=== PATIENT | female | born 1980 | race Caucasian/White ===

== ENCOUNTER 2017-07-02 05:29 | Day surgery (SDC) | payer BC ==
[2017-06-30 16:44] VITALS: BMI 32.2
[2017-07-01 12:14] LABS: BASO % 0.6 % (0-2.0); EOS % 0.9 % (0-4.5); HEMATOCRIT 40.4 % (32.4-45.2); HEMOGLOBIN 13.3 GM/dL (10.7-15.3); LYMPH % 16.6 % (8-40); MCH 29.3 pg (25.7-33.7); MEAN CELL VOLUME 88.9 fl (80-96); MEAN PLT VOLUME 9.6 fl (7.5-11.1); MONO % 8.3 % (3.8-10.2); NEUT % 73.6 % (42.8-82.8); PLATELET COUNT 185 K/MM3 (134-434); RBC 4.55 M/mm3 (3.60-5.2); RDW 13.6 % (11.6-15.6); WHITE BLOOD COUNT 9.5 K/mm3 (4.0-10.0)
[2017-07-02] MEDS ORDERED: LIDOCAINE HCL/PF 2% SDV 5ML VIAL ONE (07:58)
[2017-07-02] MEDS ORDERED: MIDAZOLAM HCL 2 MG/2 ML SINGLE DOSE VIAL ONE (07:58)
[2017-07-02] MEDS ORDERED: PROPOFOL 20 ML ONE (07:58)
[2017-07-02] MEDS ORDERED: DESFLURANE GAS 240 ML BOTTLE IH ONE (08:08)
[2017-07-02] MEDS ORDERED: ceFAZolin SODIUM 1 GM VIAL IVPB ONE (08:30)
[2017-07-02] MEDS ORDERED: ceFAZolin SODIUM 1 GM VIAL ONE (08:30)
[2017-07-02] MEDS ORDERED: KETOROLAC TROMETHAMINE 30 MG/1 ML VIAL ONE (08:47)
[2017-07-02] MEDS ORDERED: oxyCODONE HCL 5 MG TABLET PO PRN (09:06)
[2017-07-02] MEDS ORDERED: IBUPROFEN 400 MG TABLET (FP) PO PRN (09:06)
[2017-07-02] MEDS ORDERED: ACETAMINOPHEN 325 MG TABLET (FP) PO PRN (09:06)
[2017-07-02] MEDS ORDERED: ONDANSETRON 4 MG/2 ML VIAL IVPUSH PRN (09:07)
--- NOTE | 2017-07-02 09:14 | HP ---
Admitting History and Physical - Admission History of Present Illness: 36 yo @ 11 wks found to have missed in the office on routine testing diagnosed on ultrasound Discussed treatment options: observation, medical intervention and surgical intervention Desires surgical treatment Limitations to Obtaining History: No Limitations - Past Medical History Cardiovascular: No: HTN Gastrointestinal: No: Ascites ...LMP: 04/06/17 ...: Yes ...: 3 ...Para: 1 - Past Surgical History Additional Past Surgical History: LEEP eTOP x 1, s/p D&C Breast implants Liposuction and abdominoplasty - Smoking History Smoking history: Never smoked - Alcohol/Substance Use Hx Alcohol Use: No History of Substance Use: reports: None - Social History History of Recent Travel: No Home Medications - Allergies Allergies/Adverse Reactions: Allergies Allergy/AdvReac Type Severity Reaction Status Date / Time shellfish derived Allergy Intermediate Verified 07/02/17 06:57 No Known Drug Allergies Allergy Verified 07/02/17 06:57 - Home Medications Home Medications: Ambulatory Orders Herbal Life 2 tab PO DAILY 06/30/17 Doxycycline Monohydrate [Monodox] 100 mg PO BID 3 Days #6 capsule 07/02/17 Methylergonovine Maleate [Methergine -] 0.2 mg PO TID #6 tablet 07/02/17 Family Disease History - Family Disease History Family History: Denies Review of Systems - Review of Systems Constitutional: reports: No Symptoms HENT: reports: No Symptoms Neck: reports: No Symptoms Cardiovascular: reports: No Symptoms Gastrointestinal: reports: No Symptoms Genitourinary: reports: No Symptoms Breasts: reports: No Symptoms Reported Musculoskeletal: reports: No Symptoms Integumentary: reports: No Symptoms Hematology/Lymphatic: reports: No Symptoms Psychiatric: reports: No Symptoms Physical Examination Vital Signs: Vital Signs Temperature 98.9 F 07/02/17 06:44 Pulse Rate 64 07/02/17 06:44 Respiratory Rate 16 07/02/17 06:44 Blood Pressure 108/69 07/02/17 06:44 O2 Sat by Pulse Oximetry (%) 99 07/02/17 06:45 Constitutional: Yes: Well Nourished, No Distress, Calm Cardiovascular: Yes: Regular Rate and Rhythm Respiratory: Yes: Regular, CTA Bilaterally Gastrointestinal: Yes: Normal Bowel Sounds, Soft Edema: No Neurological: Yes: Alert, Oriented ...Motor Strength: WNL Labs: CBC, BMP 07/01/17 12:01 Assessment/Plan 36 yo with missed , 11 wks 1. Reviewed preop blood work 2. Consents reviewed and signed Reviewed risks including but not limited to infection, bleeding requiring transfusion, uterine perforation, uterine adhesion formation Patient expressed understanding, written consent obtained 3. Discussed postop medication including methergine and doxycycline 4. Will proceed to OR
[2017-07-02] MEDS ORDERED: LACTATED RINGERS SOLUTION 1,000 ML IV SCH (09:15)
--- NOTE | 2017-07-02 09:16 | OP ---
Operative Note - Note: Operative Date: 07/02/17 Pre-Operative Diagnosis: missed Operation: suction dilation and curettage Findings: uterus, approximately 11 wk sized, no FH on bedside ultrasound Post-Operative Diagnosis: Same as Pre-op Surgeon: Mayte Multani Anesthesiologist/ULTRASOUND COORDINATOR: Denisa Avendaoñ Anesthesia: General Specimens Removed: products of conception Estimated Blood Loss (mls): 800 Fluid Volume Replaced (mls): 500 Operative Report Dictated: Yes
[2017-07-02 10:10] VITALS: TEMP 98.7
--- NOTE | 2017-07-02 10:42 | OP ---
DATE OF OPERATION: 07/02/2017 ATTENDING PHYSICIAN RESPONSIBLE FOR SIGNING REPORT: Sami Multani MD PREOPERATIVE DIAGNOSIS: Missed , 11 weeks. POSTOPERATIVE DIAGNOSIS: Missed , 11 weeks. SURGEON: Sami Multani MD ANESTHESIOLOGIST: Denisa Avendaño MD ANESTHESIA: General. ESTIMATED BLOOD LOSS: 800, products of conception. FLUIDS GIVEN: 500. INDICATION: Patient is a 36-year-old, 3, para 1 with history of missed diagnosed on ultrasound on June 28, desiring surgical intervention. She was counseled regarding risks, benefits, alternatives, and complications of the procedure including infection, bleeding, uterine scar formation, uterus perforation, damage to the surrounding organs such as the bowel. She expressed understanding. DESCRIPTION OF PROCEDURE: She was brought to the operating room. When anesthesia was found to be adequate, patient was prepped and draped in normal sterile fashion, placed in dorsal lithotomy position using Avery stirrups. A weighted speculum was placed in the posterior portion of the patient's vagina. Anterior lip of the cervix was grasped using an Allis clamp. The uterus was gently dilated to accommodate a size 10 suction curette. The suction curette was placed under under ultrasound guidance. The suction was applied, and approximately 4 passes were made with a size 10 sucking curette with removal of products of conception. A size 7 curette was placed, also with removal of products. At this point in time, it was noted that the uterus did not contract down adequately, and a dose of Methergine IM was given. Ultrasound at the bedside revealed a thin endometrial stripe, and good hemostasis was noted. All instruments were removed from the patient's vagina. The patient was woken up from anesthesia and brought to recovery room in stable condition. SAMI MULTANI M.D. [id number] MTDD
[2017-07-02 11:15] VITALS: BP 110/55; PULSE 80
--- NOTE | 2017-07-05 12:28 | PATH ---
Surgical Pathology Report Patient Name: MISTY BHATTI Med. Rec. #: [id number] /Age/Gender: 1980 (Age: 36) / F Account: [id number] Location: [facility] Taken: 07/02/2017 Received: 07/02/2017 Reported: 07/05/2017 Physicians: Mayte Multani Specimen(s) Received PRODUCTS OF CONCEPTION Clinical History Missed Final Diagnosis PRODUCTS OF CONCEPTION, SUCTION DILATATION AND CURETTAGE: IMMATURE CHORIONIC VILLI AND DECIDUA CONSISTENT WITH PRODUCTS OF CONCEPTION. Electronically Signed Marsha Matthew M.D. Gross Description Received in formalin labeled "products of conception," is a 12.5 x 10.0 x 1.2 cm aggregate of red-brown soft tissue fragments. Villous tissue is identified. No definite somatic tissue is identified. A account representative portion is submitted in one cassette. /07/02/2017 located within [facility]07/02/2017
== END 2017-07-02 11:15 | disposition home or self-care (01) ==
LOC: JASU-SURG 05:29
PROVIDERS: ATTEND Obstetrics & Gynecology
PROC: 10D17ZZ Extraction of Products of Conception, Retained, Via Natural or Artificial Opening (ICD-10-PCS; principal; 2017-07-02 08:00)
DX: O02.1 Missed abortion (principal); Z3A.11 11 weeks gestation of pregnancy
CPT/HCPCS: 36415; 85025; 86850; 86900; 86901; 88305-TC; 94760

== ENCOUNTER 2017-07-12 16:31 | Day surgery (SDC) | payer BC ==
[2017-07-12 15:24] VITALS: BMI 32.2
--- NOTE | 2017-07-12 17:59 | HP ---
Past Medical History - Primary Care Physician PCP:: Vargas Morales - Admission Chief Complaint: 36yo P1 with RPOC and hematometria, admitted for Suction, D&C. History of Present Illness: S/p D&C for missed Ab on 07/02/17 with heavy bleeding and found to have hematometria w/possible RPOC History Source: Patient, Medical Record Limitations to Obtaining History: No Limitations - Past Medical History DECAL MAKER: No: Alzheimer's, CVA, Dementia, Migraine, Multiple Sclerosis, Peripheral Neuropathy, Parkinson's, Seizure, Syncope, TIA, Vertigo, Other Cardiovascular: No: AFIB, Aneurysm, Aortic Insufficiency, Aortic Stenosis, CAD, CHF, Deep Vein Thrombosis, HTN, Hyperlipdemia, SC, Mitral Insufficiency, Mitral Stenosis, Murmur, Pulmonary Hypertension, Other Pulmonary: No: Asthma, Bronchitis, Cancer, COPD, O2 Dependent, Pneumonia, Previously Intubated, Pulmonary Embolus, Pulmonary Fibrosis, Sleep Apnea, Other Gastrointestinal: No: Ascites, Cancer, Constipation, Crohn's Disease, Diverticulitis, Diverticulosis, Esophageal Varices, Gastritis, GERD, GI Bleed, Hemorrhoids, Hiatal Hernia, Inflamatory Bowel Disease, Irritable Bowel Disease, Pancreatitis, Peptic Ulcer Disease, Ulcerative Colitis, Other Hepatobiliary: No: Cirrhosis, Cholelithiasis, Cholecystitis, Choledocholithiasis , Hepatitis A, Hepatitis B, Hepatitis C, Other Renal/: No: Renal Failure, Renal Inusuff, BPH, Cancer, Hematuria, Hemodialysis , Neurogenic Bladder, Renal Calculi, UTI, Other Reproductive: No: Ectopic , Endometriosis, Fibroids, PID, Polycystic Ovary Syndrome, Postmenopausal, Other ...Para: 1 ...Spon : 1 Heme/Onc: Yes: Anemia Infectious Disease: No: AIDS, C-Diff, Herpes Zoster, HIV, MRSA, STD's, Tuberculosis, VREF, Other Psych: No: Addictions, Anxiety, Bipolar, Depression, Panic, Psychosis, Schizophrenia, Other Musculoskeletal: No: Bursitis, Chronic low back pain, Hemiparesis, Hemiplegia, Osteoarthritis, Paraplegia, Other Rheumatology: No: Fibromyalgia, Gout, Lupus, Rheumatoid Arthritis, Sarcoidosis, Vasculitis, Other ENT: No: Allergic Rhinitis, Sinusitis, Other Endocrine: No: Sullivan's Disease, Poly's Disease, Diabetes Insipidus, Diabetes Mellitus, Hyperparathyroidism, Hyperthyroidism, Hypothyroidism, Osteopenia, SIADH, Other - Past Surgical History Hx Myomectomy: No Hx Transabdominal Cerclage: No Additional Surgical History: Breast Augmentation, Abdominoplasty, LEEP - Smoking History Smoking history: Never smoked Have you smoked in the past 12 months: No - Alcohol/Substance Use Hx Alcohol Use: No History of Substance Use: reports: None - Social History Usual Living Arrangement: Yes: With Spouse, With Child History of Recent Travel: No Home Medications - Allergies Allergies/Adverse Reactions: Allergies Allergy/AdvReac Type Severity Reaction Status Date / Time shellfish derived Allergy Intermediate Verified 07/12/17 16:49 No Known Drug Allergies Allergy Verified 07/12/17 16:49 - Home Medications Home Medications: Ambulatory Orders Herbal Life 2 tab PO DAILY 06/30/17 Methylergonovine Maleate [Methergine -] 0.2 mg PO TID #6 tablet 07/02/17 Ibuprofen [Advil -] 200 mg PO TID 07/12/17 Family Disease History - Family Disease History Family Disease History: Other: Mother (PE) Review of Systems - Review of Systems Constitutional: reports: No Symptoms Eyes: reports: No Symptoms HENT: reports: No Symptoms Neck: reports: No Symptoms Cardiovascular: reports: No Symptoms Respiratory: reports: No Symptoms Gastrointestinal: reports: No Symptoms Genitourinary: reports: Vaginal Bleeding Breasts: reports: No Symptoms Reported Musculoskeletal: reports: No Symptoms Integumentary: reports: No Symptoms Neurological: reports: No Symptoms Endocrine: reports: No Symptoms Hematology/Lymphatic: reports: No Symptoms Psychiatric: reports: No Symptoms Pain Intensity: 1 Physical Exam-COUNCILMAN Vital Signs: Vital Signs Temperature 98.9 F 07/12/17 16:51 Pulse Rate 68 07/12/17 16:51 Respiratory Rate 16 07/12/17 16:51 Blood Pressure 129/72 07/12/17 16:51 O2 Sat by Pulse Oximetry (%) Constitutional: Yes: Well Nourished, No Distress, Calm Eyes: Yes: WNL, Conjunctiva Clear HENT: Yes: WNL, Atraumatic, Normocephalic Neck: Yes: WNL, Supple, Trachea Midline Cardiovascular: Yes: WNL, Regular Rate and Rhythm Respiratory: Yes: WNL, Regular, CTA Bilaterally Gastrointestinal: Yes: WNL, Normal Bowel Sounds, Soft ...Rectal Exam: Yes: Deferred Renal/: Yes: WNL Pelvis: Yes: WNL External Genitalia: Yes: Normal Internal Exam Deferred: No Vaginal Exam: Yes: Bleeding Cervix: Yes: Normal Uterus: Yes: Normal Adnexa: Not Palpable: Left, Right Musculoskeletal: Yes: WNL Extremities: Yes: WNL Edema: No Integumentary: Yes: WNL Neurological: Yes: WNL, Alert, Oriented ...Motor Strength: WNL Psychiatric: Yes: WNL, Alert, Oriented Imaging - Results Ultrasound: Report Reviewed Assessment/Plan 36yo P1 with RPOC and hematometria, admitted for Suction, D&C. We had a long discussion about the risks, benefits, and alternatives of surgery. I explained the risks of infection, bleeding, scarring, amenorrhea, Asherman's syndrome, infertility, perforation, need for additional surgery to treat any complications , etc. The pt declined expectant management or prostaglandin tx. She requested to proceed with surgery.
[2017-07-12] MEDS ORDERED: PROPOFOL 20 ML ONE ×2 (18:03→18:19)
[2017-07-12] MEDS ORDERED: DEXAMETHASONE SOD PHOSPHATE 4 MG/1 ML VIAL ONE (18:03)
[2017-07-12] MEDS ORDERED: MIDAZOLAM HCL 2 MG/2 ML SINGLE DOSE VIAL ONE ×2 (18:03)
[2017-07-12] MEDS ORDERED: LIDOCAINE HCL/PF 2% SDV 5ML VIAL ONE (18:10)
[2017-07-12] MEDS ORDERED: KETOROLAC TROMETHAMINE 30 MG/1 ML VIAL ONE (18:10)
[2017-07-12] MEDS ORDERED: ceFAZolin SODIUM 1 GM VIAL IVPB ONE (18:23)
[2017-07-12] MEDS ORDERED: PROMETHAZINE HCL 25 MG/1 ML VIAL IVPB PRN (18:38)
[2017-07-12] MEDS ORDERED: oxyCODONE HCL 5 MG TABLET PO PRN (18:38)
[2017-07-12] MEDS ORDERED: ONDANSETRON 4 MG/2 ML VIAL IVPUSH PRN (18:38)
[2017-07-12] MEDS ORDERED: LACTATED RINGERS SOLUTION 1,000 ML IV SCH (18:45)
--- NOTE | 2017-07-12 18:45 | OP ---
Operative Note - Note: Operative Date: 07/12/17 Pre-Operative Diagnosis: Hematometria, possible RPOC Operation: Suction. D&C Findings: Old blood clots Post-Operative Diagnosis: Same as Pre-op Surgeon: Vargas Morales Anesthesiologist/FAX MACHINE OPERATOR: Giancarlo Smith Anesthesia: General Specimens Removed: Uterine curettings Estimated Blood Loss (mls): 30 Drains, Volume Out (mls): 0 Blood Volume Replaced (mls): 0 Fluid Volume Replaced (mls): 600 Operative Report Dictated: Yes
[2017-07-12 19:14] VITALS: TEMP 98.2
[2017-07-12 19:32] VITALS: PULSE 58
[2017-07-12 19:59] VITALS: BP 129/69
--- NOTE | 2017-07-12 20:54 | OP ---
DATE OF OPERATION: 07/12/2017 PREOPERATIVE DIAGNOSIS: Hematometra, possible retained products of conception. POSTOPERATIVE DIAGNOSIS: Hematometra, possible retained products of conception. PROCEDURE: Suction dilatation and curettage. SURGEON: Vargas Morales MD ANESTHESIOLOGIST: Giancarlo Smith MD ANESTHESIA: General. COMPLICATIONS: None. PATHOLOGY: Uterine curettings, possible retained products of conception. INTRAVENOUS FLUIDS: 600 mL of crystalloids. ESTIMATED BLOOD LOSS: 30 mL PATHOLOGY: Endometrial curettings. FINDINGS: Small anteverted uterus, slightly stenotic cervical os consistent with previous history of LEEP procedure, old blood and blood clots within endometrial cavity. No retained products of conception noted. DESCRIPTION OF PROCEDURE: The patient was met preoperatively. Risks, benefits, and alternatives of surgery were discussed in details. All questions were answered. The patient was brought to the OR with the IV running. She was placed on the surgical table in the supine position. The general anesthesia was achieved without difficulty. The patient was then placed in a dorsal lithotomy position using adjustable Avery stirrups. She was examined under anesthesia with the findings as described above. The patient was then prepped and draped in the usual sterile fashion. A timeout procedure was conducted as per standard protocol. A sterile speculum was introduced inside the patient's vagina with good visualization of the cervix. The cervix was grasped with a single-tooth tenaculum. The cervical os was gently dilated to accommodate the size 23 Vincent dilator. A curved curette was then introduced inside the uterine cavity. A suction curettage was performed, and all blood clots were evacuated. No retained products of conception were noted at the end of the procedure. Good hemostasis was noted. All of the instruments were removed from the patient. Sponge, lap, and instrument counts were correct. The patient was returned to supine position and transferred to recovery room in stable condition and awake. Keny [id number]
[2017-07-12] MEDS ORDERED: METHYLERGONOVINE MALEATE 0.2 MG TABLET (FP) PO SCH (22:00)
[2017-07-12] MEDS ORDERED: IBUPROFEN 200 MG TABLET PO SCH (22:00)
[2017-07-13] MEDS ORDERED: HERBAL LIFE PO SCH (10:00)
--- NOTE | 2017-07-16 10:30 | PATH ---
Surgical Pathology Report Patient Name: MISTY BHATTI Med. Rec. #: [id number] /Age/Gender: 1980 (Age: 36) / F Account: [id number] Location: [facility] Taken: 07/12/2017 Received: 07/13/2017 Reported: 07/16/2017 Physicians: Vargas Morales M.D. Specimen(s) Received UTERINE CURETTINGS POC Clinical History Incomplete Final Diagnosis UTERINE CURETTINGS AND PRODUCTS OF CONCEPTION, DILATION AND CURETTAGE: RARE IMMATURE CHORIONIC VILLI, DECIDUA, AND GESTATIONAL ENDOMETRIUM CONSISTENT WITH PRODUCTS OF CONCEPTION. Electronically Signed Marsha Matthew M.D. Gross Description Received in formalin labeled "uterine curettings and products of conception," is a 7.0 x 6.2 x 1.0 cm aggregate of red-brown soft tissue fragments admixed with blood clot. No definite villous tissue or somatic tissue is identified. Entire specimen is submitted in 13 cassettes. 07/13/2017 [facility]07/13/2017
== END 2017-07-12 19:59 | disposition home or self-care (01) ==
LOC: JASU-SURG 16:31
PROVIDERS: ATTEND Obstetrics & Gynecology
PROC: 0UDB7ZX Extraction of Endometrium, Via Natural or Artificial Opening, Diagnostic (ICD-10-PCS; principal; 2017-07-12 18:00)
DX: N85.7 Hematometra (principal)
CPT/HCPCS: 86850; 86900; 86901; 88305-TC; 94760